=== PATIENT | female | born 1990 | race African-American/Black ===

== ENCOUNTER 2021-09-29 12:15 | Outpatient (CLI) | payer BC, SELFPAY ==
--- NOTE | ~2021-09-29 | US_ITS ---
EXAMINATION: US FNA w image guidance DATE: 09/29/2021 14:13 INDICATION: Left thyroid mass TECHNIQUE: A time-out was performed to verify the patient's name, date of , and procedure to be performed . The procedure and its benefits and risks were discussed with the patient. Risks specifically discus sed included bleeding and infection. The patient understood the risks and agreed to proceed. The neck was prepped and draped in the usual sterile manner. 4 mL 1% lidocaine was used for local anesthesia . 6 passes were made with a 25G needle into the lesion. Appropriate needle location was documented w ith continuous sonographic guidance. Subsequently a 21G needle was advanced into the cystic component of the mass and fluid was aspirated. A sterile bandage was applied. There were no immediate complic ations. FINDINGS: Grayscale ultrasound images demonstrate biopsy needles advanced into the solid components of a 8.2 x 6.2 x 5.1 cm mixed solid and cystic. Left thyroid mass. Subsequent images demonstrate a needle advanc ed into the cystic component of the left thyroid mass with progressive decompression of the mass. A t otal of 75 mL of brownish fluid was aspirated from the cystic component of the mass and also sent to the lab for cytology. IMPRESSION: 1. Successful ultrasound-guided fine needle aspiration of an 8.2 cm mixed solid and cystic left thyr oid mass. 2. Successful ultrasound-guided aspiration of fluid from the cystic component of the mass using 75 mL of brownish fluid. Reviewed, dictated and finalized at location A. IMPRESSION: 1. Successful ultrasound-guided fine needle aspiration of an 8.2 cm mixed verónica d and cystic left thyroid mass. 2. Successful ultrasound-guided aspiration of fluid from the cystic component o f the mass using 75 mL of brownish fluid.
== END 2021-09-29 12:16 | disposition home or self-care (01) ==
PROVIDERS: PCP Internal Medicine Infectious Disease; Visit Provider Nurse Practitioner
DX: E04.9 Nontoxic goiter, unspecified (principal)
CPT/HCPCS: 10005; 88104; 88108; 88173; 88305

== ENCOUNTER 2025-03-13 13:49 | Observation (INO) | payer OTHER, SELFPAY ==
[2025-03-13] VITALS (10 sets, daily range): BP systolic 137–153; BP diastolic 69–105; PULSE 104–130; RESP 20–33; TEMP 36.6–37.3; O2SAT 97–100; BMI 41.1
--- NOTE | ~2025-03-13 | XR_ITS ---
EXAMINATION: XR chest 2V, 03/13/2025 15:09 FINGERPRINT CLERK HISTORY: cough COMPARISON: No comparisons available. Technique: 2 views obtained. Findings: Small basilar infiltrates. No pneumothorax. Heart is normal size. Mediastinal and hilar contours are within normal limits. Bony thorax no acute abnormality. Impression: Early bilateral pneumonia Reviewed, dictated and finalized at location P. ERPRINT CLERK Impression: Early bilateral pneumonia
--- NOTE | 2025-03-13 14:24 | ECG_ITS ---
Test Date: 2025-03-13 14:26:14 Measurements Intervals [place] Rate: 116 P: 34 MI: 128 QRS: 54 QRSD: 83 T: 30 QT: 301 QTc: 419 Interpretive Statements SINUS TACHYCARDIA ABNORMAL ECG No previous ECG available for comparison Electronically Signed On 03-13-2025 14:41:58 THREAD DRAWER by rIon Lopez D.O.
[2025-03-13 15:19] LABS: Influenza A QL RT-PCR Positive (Negative); Influenza B QL RT-PCR Negative (Negative); RSV RNA, RT-PCR Negative (Negative); SARS-CoV-2 RNA PCR Negative (Negative)
[2025-03-13] MEDS: KETOROLAC 30 MG/ML VIAL (*BKC) IV PUSH (15:27)
[2025-03-13] MEDS: SODIUM CHLORIDE 0.9% IV 1,000 ML 999 ML IV CONT ×3 (15:27→17:22)
[2025-03-13 15:40] LABS: Hematocrit 36.5 % (37.0-47.0); Hemoglobin 12.5 g/dL (12.0-15.0); Mean Corpuscular HGB Conc 34.2 g/dl (32-36); Mean Corpuscular Hemoglobin 23.5 pg (26-34); Mean Corpuscular Volume 68.7 fl (80-100); Platelet Count Result 230 k/mm3 (150-375); Red Blood Count 5.31 M/mm3 (4.2-5.4); White Blood Count 5.0 K/mm3 (4.5-10.0)
--- NOTE | 2025-03-13 15:41 | ED_ITS ---
HPI - General Adult General Chief complaint: Upper Respiratory Infection Stated complaint: cough, sob Time Seen by Provider: 03/13/25 14:25 History of Present Illness HPI narrative: Patient is a 34-year-old female who presents ER with cough and shortness of breath. Ongoing over last 24 hours. Associated sinus congestion with sore throat. She has cough that causes pain in her chest. She has exertional dyspnea. Her cough is productive. No known sick contacts. She has been having cycling of fevers and chills. Denies body aches. Related Data Home Medications ?Medication ?Instructions ?Recorded ?Confirmed ?Last Taken ?Type No Home Medications 09/17/21 09/17/21 U nknown History Allergies Allergy/AdvReac Type Severity Reaction Status Date / Time No Known Allergies Allergy Verified 03/13/25 13:50 Review of Systems 2 Review of Systems: All systems reviewed & are unremarkable except as noted in HPI and below Constitutional: Constitutional: Reports no additional constitutional complaints Cardiovascular: Cardiovascular: Reports no additional cardiovascular complaints Respiratory: Respiratory: Reports no additional respiratory complaints Gastrointestinal: Gastrointestinal: Reports no additional gastrointestinal complaints Musculoskeletal: Musculoskeletal: Reports no additional musculoskeletal complaints FOR[facility]LY [facility], [facility] Past Medical History Medical History (Updated 03/13/25 @ 18:53 by Popeye Redmond MD) Graves disease Social History Social History Smoking status: Never smoker Alcohol intake: never Substance use: never Exam 2 Narrative: GENERAL: Unwell-appearing, well-nourished, and in no acute distress. HEAD: Normocephalic, atraumatic. ENT: Mucous membranes moist. NECK: Supple. CHEST: Clear to auscultation. Frequent coughing. HEART: Tachycardic and regular. Normal peripheral pulses. ABDOMEN: Soft, nontender, nondistended. EXTREMITIES: Normal range of motion. No edema. SKIN: Warm, dry, no rash. NEURO: Alert and oriented x3. Course Course Emergency Course: Admit to hospitalist service for influenza pneumonia. No hypoxia but patient with rapidly progressive course which is concerning. Vital Signs Vital signs: Vital Signs Temperature 98.7 F 03/13/25 13:52 Pulse Rate 130 H 03/13/25 13:52 Respiratory Rate 20 03/13/25 13:52 Blood Pressure 153/105 H 03/13/25 13:52 Pulse Oximetry 100 03/13/25 13:52 Oxygen Delivery Room Air 03/13/25 13:52 Temperature 98.7 F 03/13/25 13:52 Pulse Rate 106 H 03/13/25 17:36 Respiratory Rate 22 H 03/13/25 17:36 Blood Pressure 153/78 H 03/13/25 17:36 Pulse Oximetry 98 03/13/25 17:36 Oxygen Delivery Room Air 03/13/25 14:22 MDM Differential Diagnosis Differential Diagnosis: Pneumonia, influenza, URI, musculoskeletal chest pain, pneumothorax Lab Data MDM Lab Attestation statement: I personally reviewed the patient's lab results. 03/13/25 15:29 03/13/25 15:29 Labs: Lab Results 03/13/25 03/13/25 Range/Units 14:26 15:29 WBC 5.0 (4.5-10.0) K/mm3 RBC 5.31 (4.2-5.4) M/mm3 Hgb 12.5 (12.0-15.0) g/dL Hct 36.5 L (37.0-47.0) % MCV 68.7 L (80-100) fl MCH 23.5 L (26-34) pg MCHC 34.2 (32-36) g/dl RDW 14.5 (11.5-14.5) % Plt Count 230 (150-375) k/mm3 MPV 9.3 (7.4-10.4) fl Immature Gran % (Auto) Not Reportable Neut % (Auto) Not Reportable Lymph % (Auto) Not Reportable [place] % (Auto) Not Reportable Eos % (Auto) Not Reportable Baso % (Auto) Not Reportable Lymph # (Auto) Not Reportable [place] # (Auto) Not Reportable Eos # (Auto) Not Reportable Baso # (Auto) Not Reportable Abs Immat Gran (auto) Not Reportable Absolute Neuts (auto) Not Reportable Absolute Nucleated RBC Not Reportable Total Counted 100 Neutrophils % (Manual) 49 (46-73) % Band Neutrophils % Not Reportable Lymphocytes % (Manual) 34 (18-44) % Monocytes % (Manual) 17 H (3-9) % Nucleated RBC % Not Reportable Abs Neuts (Manual) 4.15 (1.3-6.7) K/mm3 Abs Lymphs (Manual) 1.70 (1.1-4.5) K/mm3 Abs Monocytes (Manual) 0.85 (0.1-0.90) K/mm3 Platelet Estimate Adequate (Adequate) Microcytosis 1+ (NORMAL) Schistocytes None seen Sodium 136 L (137-145) mmol/L Potassium 4.0 (3.4-5.0) mmol/L Chloride 104 (98-107) mmol/L Carbon Dioxide 27 (22-30) mmol/L Anion Gap 5 (4-12) mmol/L BUN 6 L (7-17) mg/dL Creatinine 0.40 L (0.7-1.0) mg/dL Estim Creat Clear Calc Not Reportable Estimated GFR > 60 (59 - ) Glucose 108 (65-110) mg/dL Calcium 9.1 (8.4-10.2) mg/dL Total Bilirubin 0.6 (0.2-1.3) mg/dL AST 36 (14-36) U/L ALT 29 (6-35) U/L Alkaline Phosphatase 132 H (38-126) U/L Total Protein 8.0 (6.3-8.2) g/dL Albumin 4.1 (3.5-5.1) g/dL Influenza A (RT-PCR) Positive A (Negative) Influenza B (RT-PCR) Negative (Negative) RSV (RT-PCR) Negative (Negative) SARS-CoV-2 RNA (RT-PCR) Negative (Negative) Imaging Data Radiologist's impression: ITS Impressions Chest X-Ray 03/13/25 15:16 Impression: Early bilateral pneumonia Discharge Plan Discharge Clinical Impression: Influenza and pneumonia Patient Disposition: Still a Patient Condition: Stable
[2025-03-13 15:55] LABS: Alanine Aminotransferase 29 U/L (6-35); Albumin Level 4.1 g/dL (3.5-5.1); Alkaline Phosphatase 132 U/L (38-126); Anion Gap 5 mmol/L (4-12); Aspartate Amino Transferase 36 U/L (14-36); Bilirubin,Total 0.6 mg/dL (0.2-1.3); Blood Urea Nitrogen 6 mg/dL (7-17); Calcium 9.1 mg/dL (8.4-10.2); Carbon Dioxide 27 mmol/L (22-30); Chloride 104 mmol/L (98-107); Estimated Glomerular Filt Rate > 60; Glucose 108 mg/dL (65-110); Potassium 4.0 mmol/L (3.4-5.0); Sodium 136 mmol/L (137-145); Total Protein 8.0 g/dL (6.3-8.2)
[2025-03-13 16:11] LABS: Neutrophils Absolute Manual 4.15 K/mm3 (1.3-6.7); Neutrophils Percent Manual 49 % (46-73); Total Cells Counted 100
[2025-03-13 16:12] LABS: Lymphocytes Absolute Manual 1.70 K/mm3 (1.1-4.5); Lymphocytes Percent Manual 34 % (18-44); Microcytosis 1+ (NORMAL); Monocytes Absolute Manual 0.85 K/mm3 (0.1-0.90); Monocytes Percent Manual 17 % (3-9); Schistocytes None Seen
[2025-03-13] MEDS: OSELTAMIVIR PHOSPHATE 75 MG CAPSULE PO (17:15)
--- NOTE | 2025-03-13 19:04 | PC.NURSE ---
antibiotics have not been started at this time due to second set of blood cultures not being obtained. phlebotomy has been called.
--- OUTSIDE RECORDS SUMMARY | 2025-03-13 20:04 | XMS_ITS | Data Portability ---
Author Organization [place] [facility] [employer], Main Office Address [address] [place] [address] Care Team Providers Care Window Sash Installer Name Role Phone GRABIEL CHAUDHARI Primary Care Provider GRABIEL CHAUDHARI Referring Provider [phone] Assessment Encounter Date Assessment Date Assessment LastModified by Organization Details LastModified Time 04/23/2024 04/23/2024 33-year-old female presents for evaluation of her left thumb. She works at [employer] and had injury on 04/18/2024 at work when she closed her thumb and if safe drawer. She presented the emergency department where she is found to have a laceration and a minimally displaced fracture of the distal phalanx. She was dressed and splinted and sent here for follow-up. She denies having any previous injuries. She is right-hand dominant. Review of systems per patient questionnaire Physical exam: Previous splint and dressing were removed. She has a laceration that is healing over the distal phalanx dorsal aspect. It is proximal to the level of the nail. She has sensation intact to light touch. 2+ radial pulse. X-rays were reviewed, demonstrating a transverse fracture of the distal phalanx We redressed her wound with a nonstick dressing and placed her into a Alumafoam finger splint. We will treat this conservatively. She was given a few days of Keflex for her wound at the emergency department and we will extend that. follow-up in 2 weeks for recheck, or sooner as needed. Avoid use of that hand. [email or web address] Not available 04/23/2024 12:03:20 05/07/2024 05/07/2024 33-year-old female presents for follow up of her left thumb. She had a tuft fracture when she got her finger caught in a safe door. She has been in the splint. We gave her a course of Keflex last time which she is completing. She has been keeping it clean and dry. Her laceration is well healed. She still has some soreness over the distal phalanx. She has sensation intact to light touch, brisk cap refill We will maintain her in the splint. We discussed that bones typically take about 6 weeks to heal. We will keep her restricted to no lifting pushing pulling with the left hand. follow up in 3 weeks with repeat x-rays. [email or web address] Not available 05/07/2024 11:48:12 Plan of Treatment Reminders Order Date Submit Date Provider Last Modified By Organization Details Last Modified Time Details Appointments None recorded. Lab None recorded. Referral None recorded. Procedures None recorded. Surgeries None recorded. Imaging None recorded. Medication Orders cephalexin 500 mg tablet 2024 025 [email or web address] [facility], [address] [place] [address], [address], 21:47:34 Patient TargetsNo targets recorded. Patient InstructionsNo instructions recorded. Reason for Referral None Reported. Results Created Date Observation Date Name Description Value Unit Range Abnormal Flag Note LastModifiedBy Organization Detail LastModifiedTime 08/21/1908/20/2022 COMPR EHENS GEOFFREY METAB OLIC PANEL sodium 139 mmol/ L 137-14 5 Not Available [facility] (Lab) [address] [place], [address], 08/20/2022 14:57:51 08/21/19 23 08/20/2022 COMPR EHENS GEOFFREY METAB OLIC PANEL potassium 3.5 mmol/ L 3.5-5. 1 Not Available [facility] (Lab) [address] [place], [address], 08/20/2022 14:57:51 08/21/19 23 08/20/2022 COMPR EHENS GEOFFREY METAB OLIC PANEL chloride 108 mmol/ L 98-107 high Not Available [facility] (Lab) [address] [place], [address], 08/20/2022 14:57:51 08/21/19 23 08/20/2022 COMPR EHENS GEOFFREY METAB OLIC PANEL carbon dioxide 24 mmol/ L 22-30 Not Available [facility] (Lab) [address] [place], [address], 08/20/2022 14:57:51 08/21/19 23 08/20/2022 COMPR EHENS GEOFFREY METAB OLIC PANEL anion gap 10.5 mmol/ L 14-22 low Not Available [facility] (Lab) [address] [place], [address], 08/20/2022 14:57:51 08/21/19 23 08/20/2022 COMPR EHENS GEOFFREY METAB OLIC PANEL glucose 112 mg/dL 70-99 high Not Available [facility] (Lab) [address] [place], [address], 08/20/2022 14:57:51 08/21/19 23 08/20/2022 COMPR EHENS GEOFFREY METAB OLIC PANEL BUN 6 mg/dL 8-19 low Not Available [facility] (Lab) [address] [place], [address], 08/20/2022 14:57:51 08/21/19 23 08/20/2022 COMPR EHENS GEOFFREY METAB OLIC PANEL creatinine 0.39 mg/dL 0.66-1 .25 low Not Available [facility] (Lab) [address] [place], [address], 08/20/2022 14:57:51 08/21/19 23 08/20/2022 COMPR EHENS GEOFFREY METAB OLIC PANEL GFR >60 Refer ence Range : Grant ge GFR Healt hy Adult : >60 mL/mi n/1.7 3 m2 Chron ic Kidne y Disea se: 15-60 mL/mi n/1.7 3 m2 Kidne y Failu re: <15/m L/min /1.73 m2 www.n iddk. nih.g ov The MDRD study equat ion has not been valid ated in child clarice <18 years of age; pregn ant women ; the elder ly >85 years of age; or in some racia l or ethni c subgr oups, such as Hispa nics. Outsi de the valid ated jermaine eters , estim ated GFR is less accur ate, requi ring clini martine judgm ent on a case- by-ca se basis . Clini martine inter preta tion for other races and ages must be made by the clini jenna. The MDRD study equat ion has not been valid ated for the evalu ation of serum creat inine relat ed to nutri pito l statu s or medic ation usage . For perso ns <18 years of age, a pedia tric GFR calcu lator is avail able on the [facility] websi te: https ://yenifer w.neha raines.o rg/pr ofess ional s/kdo qi/gf r_cal culat or Not Available [facility] (Lab) [address] [place], [address], 08/20/2022 14:57:51 08/21/19 23 08/20/2022 COMPR EHENS GEOFFREY METAB OLIC PANEL alkaline phosphatase 83 U/L 38-126 Not Available [facility] (Lab) [address] [place], [address], 08/20/2022 14:57:51 08/21/19 23 08/20/2022 COMPR EHENS GEOFFREY METAB OLIC PANEL alanine aminotransfe rase 19 U/L 0-35 Not Available [facility] (Lab) [address] [place], [address], 08/20/2022 14:57:51 08/21/19 23 08/20/2022 COMPR EHENS GEOFFREY METAB OLIC PANEL aspartate aminotransfe rase 23 U/L 15-37 Not Available [facility] (Lab) [address] [place], [address], 08/20/2022 14:57:51 08/21/19 23 08/20/2022 COMPR EHENS GEOFFREY METAB OLIC PANEL bilirubin, total 0.40 mg/dL 0.20-1 .30 Not Available [facility] (Lab) [address] [place], [address], 08/20/2022 14:57:51 08/21/19 23 08/20/2022 COMPR EHENS GEOFFREY METAB OLIC PANEL calcium 8.8 mg/dL 8.4-10 .2 Not Available [facility] (Lab) [address] [place], [address], 08/20/2022 14:57:51 08/21/19 23 08/20/2022 COMPR EHENS GEOFFREY METAB OLIC PANEL total protein 6.8 g/dL 6.3-8. 2 Not Available [facility] (Lab) [address] [place], [address], 08/20/2022 14:57:51 08/21/19 23 08/20/2022 COMPR EHENS GEOFFREY METAB OLIC PANEL albumin 3.5 g/dL 3.4-5. 0 Not Available [facility] (Lab) [address] [place], [address], 08/20/2022 14:57:51 08/21/19 23 08/20/2022 COMPR EHENS GEOFFREY METAB OLIC PANEL globulin 3.3 g/dL 2.6-4. 2 Not Available [facility] (Lab) [address] [place], [address], 08/20/2022 14:57:51 08/21/19 23 08/20/2022 COMPR EHENS GEOFFREY METAB OLIC PANEL A/G ratio 1.1 ratio 1.0-2. 0 Not Available [facility] (Lab) [address] [place], [address], 08/20/2022 14:57:51 08/21/19 23 08/20/2022 T3 FREE free T3 8.7 pg/mL 2.77-5 .27 high Not Available [facility] (Lab) [address] [place], [address], 08/20/2022 15:14:03 08/21/19 23 08/20/2022 T4 FREE free T4 2.84 NG/dL 0.78-2 .19 high Not Available [facility] (Lab) [address] [place], [address], 08/20/2022 15:14:10 08/21/19 23 08/20/2022 TSH thyroid-stim ulating hormone <0.015 uIU/m L 0.465- 4.680 low Not Available [facility] (Lab) [address] [place], [address], 08/20/2022 15:27:42 08/21/19 23 08/21/2022 THYRO ID PEROX IDASE (TPO) AB thyroid peroxidase (tpo) Ab <9 IU/mL 0-34 Perfo rmed at: [facility] [address] [place] [address] Lab Direc tor: Royal vincent PhD, Phone : [phone] Not Available [facility] (Lab) [address] [place], [address], 08/21/2022 10:10:10 08/21/19 23 08/24/2022 THYRO ID STIM IMMUN OGLOB ULIN thyroid stim immunoglobul in 3.96 IU/L 0.00-0 .55 high Perfo rmed at: [facility] [address] [place] [address] [place] [address] Lab Direc tor: Meryl conner MD, Phone : [phone] Not Available [facility] (Lab) [address] [place], [address], 08/24/2022 15:10:45 09/30/19 22 09/29/2021 fine needl e aspir ation , ultra sound guide d, thyro id (PROC ) No observ ation record ed. [id number] [facility] [address] [place], [address], 06/02/2022 23:57:43 04/18/19 25 04/18/2024 XR, finge r(s), 2 or more view No observ ation record ed. [email or web address] Not Available 04/04 15:15:12 Result Notes None recorded. 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 2021 Not Available [facility] 3 23:56:38 Graves' disease 732823875 Active 2021 Not Available [facility] 3 23:56:38 Pain of left hand 6923274510593 03 Active 2024 VELMA Martínez, [facility] 5 10:44:50 Essential hypertensi on 79130219 Active 2024 Angie Portillo ATC L null, [facility] 5 11:07:09 Gout 98211209 Active 2024 Angie Portillo ATC L null, [facility] 5 11:07:09 Folliculit is 51695868 Active 2024 Angie Portillo ATC L null, [facility] 5 11:07:09 Problem Notes None recorded. Medical Equipment None Reported. Allergies No known drug allergies Medications Name Sig Start Date Stop Date Status Note LastModified by Organization Details LastModified Time azelastine 0.05 % eye drops 04/19 completed Not Available Not Available Not Available prednisone 20 mg tablet TAKE 1 TABLET BY MOUTH ONCE DAILY FOR 5 DAYS 04/19 completed Not Available Not Available Not Available amoxicillin 500 mg tablet TK 1 T PO TID UNTIL GONE 09/22 completed Not Available Not Available Not Available propranolol 10 mg tablet TAKE 1 TABLET BY MOUTH EVERY 8 HOURS 04/19 completed Not Available Not Available Not Available famotidine 20 mg tablet 09/22 completed Not Available Not Available Not Available cephalexin 500 mg capsule TAKE 1 CAPSULE BY MOUTH EVERY 6 HOURS active Not Available Not Available No t Available erythromyci n 5 mg/gram (0.5 %) eye ointment 04/19 completed Not Available Not Available Not Available methimazole 5 mg tablet Take 1 tablet twice a day by oral route before meals for 90 days. 06/20 completed Not Available Not Available Not Available Banophen 25 mg capsule 04/19 completed Not Available Not Available Not Available cephalexin 500 mg tablet Take 1 tablet every 6 hours by oral route. 2024 active Not Available Not Available Not Avai lable methylpredn isolone 4 mg tablets in a dose pack TAKE BY MOUTH DIRECTED ON INSIDE OF PACKAGE 09/22 completed Not Available Not Available Not Available methimazole 10 mg tablet take one tablet in morning and one tablet before dinner x 90 days 04/19 completed Not Available Not Available Not Available loratadine 10 mg tablet TAKE 1 TABLET BY MOUTH ONCE DAILY DIRECTED FOR 30 DAYS 09/22 completed Not Available Not Available Not Available chlorhexidi ne gluconate 0.12 % mouthwash TAKE15 CC SWISH AND SPIT 2 TIMES DAILY FOR 2 WEEKS 09/22 completed Not Available Not Available Not Available iodine 150 mcg tablet Take 1 tablet every day by oral route for 30 days. 04/19 completed Not Available Not Available Not Available Vitals Date Recorded Body height Body mass index (BMI) Body weight Pain severity - 0-10 verbal numeric rating [Score] - Reported Provider Name and Address Organization Details Last Updated DateTime 04/23/2024 149.86 cm 44.4 kg/m2 01947.32 g 0 VELMA Martínez [place] [facility] [employer] [facility] 04/23/2024 10:43:46 Date Recorded Body height Body mass index (BMI) Body weight Pain severity - 0-10 verbal numeric rating [Score] - Reported Provider Name and Address Organization Details Last Updated DateTime 05/07/2024 149.86 cm 44.4 kg/m2 50607.32 g 1 VELMA Martínez [place] [facility] 05/07/2024 11:12:55 Date Recorded Body mass index (BMI) Body height Oxygen saturation Heart rate Body temperature Body weight Systolic And Diastolic Provider Name and Address Organization Details Last Updated DateTime 2 37 kg/m2 149.86 cm 99 % 92 /min 98 [degF] 48201.4 g 122/68 mm[Hg] Not Available [facility] 3 23:56:11 Date Recorded Body mass index (BMI) Body height Oxygen saturation Heart rate Body temperature Body weight Systolic And Diastolic Provider Name and Address Organization Details Last Updated DateTime 2 39.4 kg/m2 149.86 cm 97 % 91 /min 98 [degF] 88000.5 1 g 124/70 mm[Hg] Not Available [facility] 3 23:56:11 Date Recorded Body mass index (BMI) Body height Heart rate Body temperature Body weight Systolic And Diastolic Provider Name and Address Organization Details Last Updated DateTime 2 44.8 kg/m2 149.86 cm 91 /min 97.1 [degF] 501622. 79 g 102/70 mm[Hg] Not Available [facility] 3 23:56:11 Social History Question Answer Notes LastModified by Cub[employer] Details LastModified Time Tobacco Smoking Status Never Smoker Not Available [facility] 06/02/2022 23:55:46 What Was The Date Of Your Most Recent Tobacco Screening? 04/23/2024 [email or web address] Information not available 04/23/2024 Sex: Unknown Functional Status Question Answer Note LastModified by [employer] Details LastModified Time What is your level of alcohol consumption? Occasional [id number] Information not available 06/02/2022 Mental Status None recorded. Family History Relationship Description Onset Age of this Age Resolved Age Notes LastModified by Organization Details LastModified Time Maternal Aunt Disorder of thyroid gland [id number] Not available 06/02/2022 23:56:07 Maternal Uncle History of thyroid disorder [id number] Not available 06/02/2022 23:56:07 Medical History Condition Response BLINDNESS N RHEUMATIC FEVER N MRSA N INFECTIOUS DISEASE N HEART ARRHYTHMIA N LUNG DISEASE/DISORDER N HISTORY OF DRUG ABUSE N INSOMNIA N RADIATION / CHEMOTHERAPY N COPD N HIGH CHOLESTEROL / HYPERLIPIDEMIA N EYE PROBLEMS N HYPERTHYROIDISM N BLOOD DISEASES N SURGERY N EDEMA N HYPOTHYROIDISM N SHINGLES N DEPRESSION (INCLUDING POST ) N HAVE YOU BEEN HOSPITALIZED OR SEEN IN [facility] ER IN THE PAST YEAR ? N STROKE/TIA N THYROID DISEASE N BENIGN PROSTATIC HYPERPLASIA N OBESITY N EXCESSIVE PERSPIRATION N GERD/NAUSEA N ANEURYSM N OSTEOPOROSIS N ARTHRITIS N USE OF BLOOD THINNERS N NO SIGNIFICANT PAST MEDICAL HISTORY N SKIN PROBLEMS N DIABETES, TYPE N PARATHYROID DISEASE N BLOOD CLOTS N HEPATITIS / LIVER DISEASE N GOUT N ALZHEIMER'S DISEASE N HERPES N RETINOPATHY N SEIZURES/EPILEPSY N HEADACHES/MIGRAINES N GI PROBLEMS N Low Testosterone N DIZZINESS N KIDNEY DISEASE N HEART DISEASE/HEART PROBLEMS N AIDS/HIV N LIVER DISEASE N HYPERTENSION N CANCER: SPECIFY N TOURETTE'S N BLOOD TRANSFUSION N ANEMIA/BLOOD DISORDER N ATRIAL FIBRILLATION N AUTOIMMUNE DISEASE N TUBERCULOSIS N GLAUCOMA N Gynecological HistoryNo gynecological history recorded. Obstetrics History GPAL:G 0 P 0 0 0 0 Past Encounters Encounter ID Performer Location Encounter Start Date Encounter Closed Date Diagnosis/Indication Diagnosis SNOMED-CT Code Diagnosis ICD10 Code Diagnosis IMO Codes Diagnosis Note [id number] [facility] [address] [place] [id number] 09/22/2021 00:00:00 09/22/2021 16:25:53 [id number] [facility] [address] [place] [id number] 1 2021 00:00:00 2021 15:41:20 [id number] [facility] [address] [place] [id number] 1 03/09/2022 00:00:00 03/09/2022 17:19:33 [id number] Sae Hanks MD [facility] [address] [facility] [address] [place] [address] 04/23/2024 10:27:14 04/23/2024 11:09:09 Pain of left hand 1841022681 36627 M79.297 [id number] Sae Hanks MD [facility] [address] [facility], [address] [place] [address] 05/07/2024 11:07:13 05/07/2024 11:26:40 Pain of left hand 8484896193 86997 M79.642 Health Concerns Section Related Observation LastModified by Organization Detai ls LastModified Time None Recorded Concern Status LastModified by Organization Details LastModified Time None Recorded Advance Directives Directive None Recorded Payers Insurance Date Sequence Insurance Name Policy Number Policy Farrar Covered Member ID Farrar Member ID Guarantor Name 07/18/2024 1 [facility] - DOS ON OR AFTER 20 (MEDICAID REPLACEMENT - HMO) Gael Bird [id number] Gael Bird 05/03/2024 2 [facility] - DOS PRIOR TO 2024 (MEDICAID REPLACEMENT - HMO) [id number] Gael Bird [id number] Gael Bird OBGyn Episode No OBEpisode recorded.
--- OUTSIDE RECORDS SUMMARY | 2025-03-13 20:04 | XMS_ITS | Encounter Summary ---
Author Organization [facility] Address [address] [facility] [address] [place] [address] Phone Care Team Providers Care Senior Risk Analyst Name Role Phone Unknown, Notinfile Primary Care Provider Unavail able Encounter Details Date Type Department Care Team (Late st Contact Info) Description 09/05/2021 Ophth Exam [facility] Medicine Ophthalmology [address] [place] [address] [address] [place] [address] David Hernandez MD [address] [facility] [phone] [place] [address] Social History Tobacco Use Types Packs/Day Years Used Date Smoking Tobacco: Never Assessed PHQ-2 Answer Date Recorded PHQ-2 Total Score (If total score is 3 or more points, staff should administer the PHQ-9) 0 09/06/2021 Comments Unknown Sex and Gender Information Value Date Recorded Sex Assigned at Not on file Legal Sex Female 10:13 AM CDT Gender Identity Not on file Sexual Orientation Not on file documented as of this encounter Functional Status * Question Answer Date of Assessment Author BP Location Right arm 09/06/2021 1:05 PM CDT Addie Lucas RN BP Method Automatic 09/06/2021 1:05 PM CDT Addie Lucas RN MAP (mmHg) 78 09/06/2021 1:05 PM CDT Addie Lucas RN * Roman Fall Risk Question Answer Date of Assessment Author History of Falling 0 09/06/2021 7: 00 AM Addie Banks RN Secondary Diagnosis 0 09/06/2021 7 :00 AM Addie Banks RN Ambulatory Aids 0 09/06/2021 7:00 AM Addie Banks RN Intravenous Therapy/Heparin/Saline Lock 20 09/06/2021 7:00 AM Addie Banks RN Gait/Transferring 10 09/06/2021 7:0 0 AM MANDIET Addie Freire RN Mental Status 0 09/06/2021 7:00 AM MANDIET Addie Freire RN Auto Low/High - if selected proceed to interventions (retired) N/A-fall assessment required 09/06/2021 7:00 AM Addie Banks RN Roman Fall Risk Score (Score >= 45 places fall precaution order) 30 09/06/2021 7:00 AM Addie Banks RN * Rojas Scale Question Answer Date of Assessment Author Sensory Perceptions 4 09/06/2021 9:26 AM CD Addie Beltre RN Moisture 4 09/06/2021 9:26 AM Addie Riley RN Activity 4 09/06/2021 9:26 AM Addie Riley RN Mobility 4 09/06/2021 9:26 AM Addie Riley RN Nutrition 3 09/06/2021 9:26 AM Addie Riley RN Friction and Shear 3 09/06/2021 9:26 AM Addie Banks RN Rojas Scale Score 22 09/06/2021 9:26 AM Addie Banks RN * Fall Risk Interventions Question Answer Date of Assessment Author All Low Fall Interventions Applied Yes 09/06/2021 7:00 AM Addie Banks RN All Moderate Fall Interventi ons Applied Yes 09/06/2021 7:00 AM Addie Banks RN * B.M.A.T. - Bedside Mobility Assessment Tool for Nurses Question Answer Date of Assessment Author Is patient able to participate in the BMAT? Yes 09/06/2021 3:00 AM CDT Agnes Delacruz RN BMAT Level Level 4 - Green 09/06/2021 3:00 AM CDT Myrtle Cano RN * Question Answer Date of Assessment Author 1. Has the patient self-repo rted, presented with clinical signs of, or have a documented history of any of the following within the past 30 days? No 09/06/2021 3:00 AM CDT Myrtle Delacruz RN * Question Answer Date of Assessment Author Is the patient being treated today because it is known or suspected that they prepared, started, or tried to end their life? No 09/05/2021 10:16 AM CDT Madhuri Burger RN * Suicide Risk Level Answer Date of Assessment Author No risk level 09/05/2021 10:16 AM CDT Madhuri Burger RN * Self-Injurious Risk Level Answer Date of Assessment Author No risk level 09/06/2021 3:00 AM CDT Kim Delacruz RN * Pressure Injury Prevention Question Answer Date of Assessment Author 2 Nurse Skin Assessment mai kuhn 09/06/2021 3:00 A M MANDIET Myrtle Delacruz RN * Integumentary Question Answer Date of Assessment Author Integumentary (WDL) WDL 09/06/2021 9:26 AM CD T Addie Freire RN * Question Answer Date of Assessment Author BP Location Right arm 09/06/2021 1:05 PM Addie Riley RN BP Method Automatic 09/06/2021 1:05 PM MANDIET Addie Lucas RN * Question Answer Date of Assessment Author Bed In Lowest Position Yes 09/06/2021 7:00 AM Addie Banks RN Bed Wheels Locked Yes 09/06/2021 7:00 AM MANDIET Addie Freire RN * Fall Risk Interventions Question Answer Date of Assessment Author All Low Fall Interventions Applied Yes 09/06/2021 7:00 AM Addie Banks RN All Moderate Fall Interventi ons Applied Yes 09/06/2021 7:00 AM Addie Banks RN * Question Answer Date of Assessment Author Bath Bathed/showered with chlorhexidine (CHG) 09/06/2021 4:00 AM MANDIET Myrtle Delacruz RN * ADL Screening Question Answer Date of Assessment Author Patient's Vision Adequate to Safely Complete Daily Activities Yes 09/06/2021 3:00 AM Myrtle Wilkes, FRANCISCO Patient's Judgement Adequate to Safely Complete Daily Activities Yes 09/06/2021 3:00 AM MANDIET Myrtle Delacruz RN Patient's Memory Adequate to Safely Complete Daily Activities Yes 09/06/2021 3:00 AM Myrtle Wilkes RN Patient Able to Express Needs/Desires Yes 09/06/2021 3:00 AM MANDIET Myrtle Delacruz RN Dressing Independent 09/06/2021 3:00 AM Myrtle Ma RN Grooming Independent 09/06/2021 3:00 AM Myrtle Ma RN Feeding Independent 09/06/2021 3:00 AM Myrtle Ma RN Bathing Independent 09/06/2021 3:00 AM Myrtle Ma RN Toileting Independent 09/06/2021 3:00 AM Myrtle Ma RN In/Out Bed Independent 09/06/2021 3:00 AM Myrtle Ma RN Walks in Home Independent 09/06/2021 3:00 AM Myrtle Phillips RN Weakness of Legs None 09/06/2021 3:00 AM CDT Myrtle Chu RN Weakness of Arms/Hands None 09/06/2021 3:00 AM Myrtle Wilkes RN Hearing - Right Ear Functional 09/06/2021 3:00 AM CD Myrtle Fountain RN Hearing - Left Ear Functional 09/06/2021 3:00 AM Myrtle Wilkes RN Dominant hand? Right 09/06/2021 3:00 AM MANDIET Myrtle Leavitt RN Decline in ADLs in last 2 weeks? Yes (Comment) 09/06/2021 3:00 AM CDT Myrtle Delacruz, FRANCISCO * Therapy Consults Question Answer Date of Assessment Author PT Evaluation Needed 2 09/06/2021 3:00 AM Myrtle Mendez, FRANCISCO OT Evaluation Needed 2 09/06/2021 3:00 AM Myrtle Menedz RN IN FLIGHT REFUELING OPERATOR Evaluation Needed 2 09/06/2021 3:00 AM CDT Myrtle Delacruz RN * Assistive Devices Question Answer Date of Assessment Author Assistive Devices/DME None 09/06/2021 3:00 AM CDT Myrtle Delacruz RN documented as of this encounter Mental Status * Neuro ([facility]) Answer Entry Date Author [facility] 09/05/2021 11:16 AM CDT Laly Alvarado RN * Question Answer Entry Date Author Neuro ([facility]) [facility] 09/06/2021 9:26 AM CDT Addie Lucas RN documented in this encounter Plan of Treatment Not on file documented as of this encounter Visit Diagnoses Not on filedocumented in this encounter Eye Exam Visual Acuity Right eye Left eye Near sc 20/25 PH 20/20 20/25 PH 20/20 Tonometry (Tonopen, 6:15 PM) Right eye Left eye Pressure 21 21 Pupils Dark Light Shape React APD Right eye 4 2 Round Brisk None Left eye 4 2 Round Brisk None Visual Schuler Right eye Left eye Full Full Extraocular Movement Right eye Left eye Full, Ortho Full, Ortho Neuro/Psych Oriented x3: Yes Mood/Affect: Normal Dilation Both eyes: 2.5% Phenylephrin e, 1.0% Mydriacyl @ 6:16 PM External Exam Right eye Left eye External epiphora epiphora Slit Lamp Exam Right eye Left eye Lids/Lashes protective ptosis protective pto sis Conjunctiva/Sclera tr injection, tr chemosis tr injection, tr chemosis Cornea intrapalpebral SPEE intrapalpebr al SPEE Anterior Chamber Deep and Quiet Deep and Quiet Iris Round and reactive Round and dolores ctive Lens Clear Clear Vitreous Normal Normal Fundus Exam Right eye Left eye Disc Sharp margins, no elevation Tomas p margins, no elevation C/D Ratio 0.3 0.3 Macula Flat, attached Flat, attached Vessels Normal course and caliber Normal course and caliber Periphery attached, no lesions attached, n o lesions Care Teams Senior Risk Analyst Relationship Specialty Start Date End Date Unknown, Notinfile PCP - General 09/05/21 documented as of this encounter
--- OUTSIDE RECORDS SUMMARY | 2025-03-13 20:04 | XMS_ITS | Clinical Summary ---
Author Organization [facility] Address [address] [place] [address] Care Team Providers Care Patient Admitting Clerk Name Role Phone Unavailable Primary Care Provider Unavailabl e Source Comments [facility],non-owned Affiliates and Associated Physician Practices is amultiple site organization consisting of ambulatory clinics and hospital sitesin [place], [place], [place] and [place]. This disclosure is being madepursuant to the Care Everywhere program and may not contain all information available regarding this patient. 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 Gender Identity Not on file Sexual Orientation Not on file Plan of Treatment Health Maintenance Due Date Last Done Comments HIV SCREENING 2005 HEPATITIS C SCREENING 10/25/2008 DTAP/TDAP/TD VACCINES (1 - Tdap) 2009 HEPATITIS B VACCINE (1 of 3 - 19+ 3-dose series) 2009 PAP SMEAR 10/31/2011 HPV VACCINE (1 - 3-dose SCDM series) 2017 DEPRESSION SCREENING 04/04/2024 COVID-19 VACCINE (1 - 2024-2 6 season) 2024 INFLUENZA VACCINE (#1) 2024 ZOSTER VACCINE (1 of 2) 2040 HIB VACCINE Aged Out No longer eligi ble based on patient's age to complete this topic MENINGOCOCCAL (Group B) VACC INE SHARED DECISION-MAKING Aged Out No longer eligibl e based on patient's age to complete this topic MENINGOCOCCAL GROUPS A/C/Y/W VACCINE Aged Out No longer eligible b ased on patient's age to complete this topic PNEUMOCOCCAL VACCINE Aged Out No long er eligible based on patient's age to complete this topic
--- OUTSIDE RECORDS SUMMARY | 2025-03-13 20:04 | XMS_ITS | Clinical Summary ---
Author Organization [facility] Address [address] [place] [address] Care Team Providers Care Balance Engineer Name Role Phone Unknown, Notinfile Primary Care Provider Unavail able Allergies No known active allergies Medications loratadine (CLARITIN) 10 mg tablet TAKE 1 TABLET BY MOUTH ONCE DAILY DIRECTED FOR 30 DAYS 2 Active polyvinyl alcohol-povidone (REFRESH CLASSIC) 1.4-0.6 % dropperette Administer 2 drops into both eyes every 2 (two) hours as needed for dry eyes 30 each 2 Active erythromycin (ILOTYCIN) ophthalmic ointment Apply to both eyes 4 (four) times a day 3.5 g 2 Active methIMAzole (TAPAZOLE) 10 mg tablet Take 3 tablets (30 mg total) by mouth daily 90 tablet 2 Active propranoloL (INDERAL) 10 mg tablet Take 1 tablet (10 mg total) by mouth 3 (three) times a day as needed (palpitations) 30 tablet 2 Active Active Problems Problem Noted Date Diagnosed Date Hyperthyroidism 09/05/2021 Assessment & Plan (09/07/2021 10:39 AM CDT): Diagnosed in the ED, has not yet established care with endocrine -- no evidence of optic neuropathy today, full motility, no eye redness. Mild intermittent lid retraction on exam -- counseled pt to establish regular care with an in-network eye doctor, especially if considering radioactive iodine which can worsen thyroid eye disease Assessment & Plan (09/06/2021 12:53 AM CDT): Pt persistently tachycardic in ED, TSH < 0.1, T4>7.8, goiter noted on exam. Appears compensated at this time w/o evidence of thyroid storm. - check TSI, T3, urine hcg, CBC, CMP - thyroid ultrasound - start atenolol 50mg daily - endo c/s in am Photokeratitis of both eyes 09/05/2021 Assessment & Plan (09/07/2021 10:37 AM CDT): Seen in the ED on 09/05/21 with presumed photokeratitis - SPEE in both eyes with redness, light sensitivity -- symptoms improved with refresh and erythromycin -- DDx includes early thyroid eye disease given incidental hyperthyroidism diagnosed in the ED as well -- pt is not in-network for insurance. Counseled to seek out another eye doctor to be seen in the next 2-3 months -- in the meantime, recommended using erythromycin ivonne QHS prn and ATs QID PRN during the day -- return precautions discussed Assessment & Plan (09/05/2021 11:47 PM CDT): - seen by optho, f/u 09/07 as outpatient - erythromycin ivonne QID OU - cool compresses QID PRN - preservative free artificial tears Q2h PRN for comfort Medical History Medical History Date Comments Goiter Social History Tobacco Use Types Packs/Day Years Used Date Smoking Tobacco: Never Smokeless Tobacco: Never PHQ-2 Answer Date Recorded PHQ-2 Total Score (If total score is 3 or more points, staff should administer the PHQ-9) 0 09/06/2021 Personal Safety Answer Date Recorded Getting School Help Needed Not on file 04/04 Comments Unknown Sex and Gender Information Value Date Recorded Sex Assigned at Not on file Legal Sex Female 10:13 AM CDT Gender Identity Not on file Sexual Orientation Not on file Last Filed Vital Signs Vital Sign Reading Time Taken Comments Blood Pressure 133/63 09/06/2021 1:05 PM CDT Pulse 89 09/06/2021 1:05 PM CDT Temperature 36.5 C (97.7 F) 09/06/2021 1:05 PM CDT Respiratory Rate 20 09/06/2021 1:05 PM CDT Oxygen Saturation 99% 09/06/2021 1:05 PM CDT Inhaled Oxygen Concentration - - Weight 85.5 kg (188 lb 9.6 oz) 09/06/2021 4:20 A M CDT Height 149.9 cm (4' 11) 09/06/2021 4:20 AM CDT Body Mass Index 38.09 09/06/2021 4:20 AM CDT Plan of Treatment Not on file Insurance [facility] Advance Directives For more information, please contact: [phone] * Full Code (Latest Code Status on File) Date Activated Date Inactivated Comments 09/06/2021 3:42 AM 09/06/2021 7:24 PM Care Teams Balance Engineer Relationship Specialty Start Date End Date Unknown, Notinfile PCP - General 09/05/21
[2025-03-13] MEDS: cefTRIAXone 1 GM in SODIUM CHLORIDE 0.9% IV 50 ML 100 ML IVPB (20:15)
[2025-03-13] MEDS: AZITHROMYCIN IV 500 MG in SODIUM CHLORIDE 0.9% IV 250 ML IVPB (20:58)
[2025-03-13] MEDS: SODIUM CHLORIDE 0.9% IV 800 ML 999 ML IV CONT (21:03)
--- NOTE | 2025-03-13 21:59 | PC.NURSE ---
Pt ambulatory to bathroom with steady gait.
--- NOTE | 2025-03-13 22:00 | PC.NURSE ---
Received report from FRANCISCO Cosme for cont. of care. Pt AOx4 sitting at edge of bed c/o 5/10 chest pain, pt receiving IV abx and IV fluids refer to MAR. Pt placed on continuos pulse oximeter monitoring and cardiac monitoring.
--- NOTE | 2025-03-13 22:02 | WPCEDHO ---
ED Hand Off Checklist All vitals saved: yes IV Site documented:yes All med administrations documented:yes Triage Note Triage Note Patient to ED with c/o URI sx 03/13/25 14:20 since yesterday. agree with triage note, pt states she is having midsternal chest pain since yesterday. Allergies No Known Allergies Allergy (Verified 03/13/25 13:50) Administered/Completed Medications Discontinued Medications Sodium Chloride (Normal Saline Iv) 1,000 mls @ 999 mls/hr IV CONT .Q1H1M STA Stop: 03/13/25 15:57 Last Infusion: 03/13/25 17:14 Dose: Infused Documented By: Admin: 03/13/25 15:27 Dose: 999 mls/hr Documented By: JESSICA Ceftriaxone Sodium 1 gm/ (Sodium Chloride) 50 mls @ 100 mls/hr IVPB ONCE STA Stop: 03/13/25 17:31 Last Infusion: 03/13/25 20:46 Dose: Infused Documented By: Admin: 03/13/25 20:15 Dose: 100 mls/hr Documented By: COLLIN Azithromycin 500 mg/ Sodium (Chloride) 250 mls @ 250 mls/hr IVPB ONCE STA Stop: 03/13/25 18:01 Last Admin: 03/13/25 20:58 Dose: 250 mls/hr Documented By: COLLIN Sodium Chloride (Normal Saline Iv) 1,000 mls @ 999 mls/hr IV CONT .Q1H1M STA Stop: 03/13/25 18:07 Last Infusion: 03/13/25 18:20 Dose: Infused Documented By: Admin: 03/13/25 17:21 Dose: 999 mls/hr Documented By: COLLIN Sodium Chloride (Normal Saline Iv) 1,000 mls @ 999 mls/hr IV CONT .Q1H1M STA Stop: 03/13/25 18:07 Last Infusion: 03/13/25 18:20 Dose: Infused Documented By: Admin: 03/13/25 17:22 Dose: 999 mls/hr Documented By: COLLIN Sodium Chloride (Normal Saline Iv) 800 mls @ 999 mls/hr IV CONT .Q49M STA Stop: 03/13/25 17:55 Last Admin: 03/13/25 21:03 Dose: 999 mls/hr Documented By: COLLIN Ketorolac Tromethamine (Ketorolac 30 Mg/Ml Vial (*Bkc)) 30 mg IV PUSH ONCE STA Stop: 03/13/25 14:58 Last Admin: 03/13/25 15:27 Dose: 30 mg Documented By: JESSICA Oseltamivir Phosphate (Oseltamivir Phosphate 75 Mg Capsule) 75 mg PO ONCE STA Stop: 03/13/25 16:56 Last Admin: 03/13/25 17:15 Dose: 75 mg Documented By: COLLIN Notes 03/13/25 22:00 Nurse Note by Dionne Reeder Received report from FRANCISCO Cosme for cont. of care. Pt AOx4 sitting at edge of bed c/o 5/10 chest pain, pt receiving IV abx and IV fluids refer to MAR. Pt placed on continuos pulse oximeter monitoring and cardiac monitoring. Initialized on 03/13/25 22:00 - END OF NOTE 03/13/25 21:59 Nurse Note by Dionne Reeder Pt ambulatory to bathroom with steady gait. Initialized on 03/13/25 21:59 - END OF NOTE 03/13/25 19:04 (created 03/13/25 20:30) Nurse Note by Carmelina Rico antibiotics have not been started at this time due to second set of blood cultures not being obtained. phlebotomy has been called. Initialized on 03/13/25 20:30 - END OF NOTE Interventions/Assessments IV / Saline Lock, Insert Start: 03/13/25 13:50 Freq: Status: Active Protocol: Document 03/13/25 19:00 LDD (Rec: 03/13/25 21:02 LDD [id number]) IV Assessment Peripheral Access Left Antecubital IV Catheter Access Initiated IV Insertion Date 03/13/25 IV Insertion Time 19:00 Catheter Gauge 18 IV Insertion 1 Attempts Ultrasound Used for No Placement IV Site Assessment WNL IV Care and WNL Maintenance PA: Respiratory Assessment Start: 03/13/25 13:50 Freq: Status: Complete Protocol: Document 03/13/25 14:22 LDD (Rec: 03/13/25 14:22 LDD [id number]) Respiratory Assessment Symptoms Congestion,Cough,Pain,Shortness of Breath at Rest, Shortness of Breath With Exertion Effort Labored,Short of Breath Pattern Tachypnea Depth Shallow Bilateral Throughout Phase Inspiratory & Expiratory Lung Sounds Clear Cough Description Acute,Dry Oxygen Delivery Oxygen Delivery Room Air Pulse Oximetry (90- 98 100) Last Vital Signs Temperature 97.8 F 03/13/25 21:05 Pulse Rate 104 H 03/13/25 21:05 Respiratory Rate 20 03/13/25 21:05 Pulse Oximetry 100 03/13/25 21:05 Blood Pressure 151/78 H 03/13/25 21:05 Blood Pressure Mean 102 03/13/25 21:05 Blood Pressure Position Sitting 03/13/25 13:52 Oxygen Delivery Room Air 03/13/25 14:22 Weight 92.3 kg 03/13/25 14:20 Last Result - Abnormals Only Hct 36.5 % (37.0-47.0) L 03/13/25 15:29 MCV 68.7 fl (80-100) L 03/13/25 15:29 MCH 23.5 pg (26-34) L 03/13/25 15:29 Monocytes % (Manual) 17 % (3-9) H 03/13/25 15:29 Sodium 136 mmol/L (137-145) L 03/13/25 15:29 BUN 6 mg/dL (7-17) L 03/13/25 15:29 Creatinine 0.40 mg/dL (0.7-1.0) L 03/13/25 15:29 Alkaline Phosphatase 132 U/L (38-126) H 03/13/25 15:29 Influenza A (RT-PCR) Positive (Negative) A 03/13/25 14:26 Most Recent Suicide Severity Rating Suicide Severity Rating NO RISK INDICATED 03/13/25 14:20
[2025-03-13] MEDS: HYDROcodone/acetaminophen (*CRX) 5-325 MG TABLET 1 TAB PO (22:41)
--- NOTE | 2025-03-13 23:45 | ADMGEN ---
This patient, Gael Bird, was admitted to Medical Room 341-01. Patient/family oriented to hospital policies and general routines including ID bracelet, bed and alarms, visiting hours, pain management, procedures, bathroom and other care routines, personal items, smoking policy, room service/diet, and visiting hours. Information on how to activate the Rapid Response Team has been discussed. Patient/Family are encouraged to report perceived risks to care and to ask questions if they do not understand what they are told or what they should do. patient on room air, alarm within reach, denies pain at this time.
[2025-03-14 05:00] VITALS: BP 124/64; PULSE 88; RESP 20; TEMP 36.5; O2SAT 98
[2025-03-14] MEDS: BENZOCAINE/MENTHOL (*BKC) 18 EA LOZENGE 1 LOZENGE PO (09:17)
[2025-03-14] MEDS: ACETAMINOPHEN 325 MG TABLET 650 MG PO (09:18)
[2025-03-14] MEDS: OSELTAMIVIR PHOSPHATE 75 MG CAPSULE PO ×2 (09:20→21:08)
--- NOTE | 2025-03-14 10:43 | P.HP_ITS ---
H&P: HPI History of Present Illness Date/Time: 03/14/25 10:43 Chief Complaint: cough, sob Narrative: Gael Bird is a 34-year-old female with a history of Grave's disease who presents to the hospital for nonproductive cough, chills, and shortness of breath for 3 days. She states that this has been going on since Tuesday. She denies any recent sick contacts or anyone else in her household with similar symptoms. Also endorsing sinus congestion with a sore throat, fevers/chills and nausea without emesis. Denies any body aches, chest pain, urinary/bowel changes. She denies any recent travel or hospitalizations. He states exertion/movement makes her shortness of breath worse, rest makes it better. ED workup: 98.7? F, pulse rate 130, respiratory rate 20, 153/105, 100% on room air WBC 5.0, Hgb 12.5, Hct 36.5, Plt 230, Neutrophil 49%, Monocyte 17%, Na 136, K 4.0, BUN 6, Cr 0.4, LFTs wnl Viral Panel: (+) for Influenza A, (-) for COVID/Flu B/RSV Chest XR: Early bilateral pneumonia Review of Systems Review of Systems: All systems reviewed & are unremarkable except as noted in HPI and below PMFSH Past Medical History Medical History (Updated 03/14/25 @ 12:49 by Berto Sepulveda PA-C) Graves disease Social History Social History Smoking status: Never smoker Alcohol intake: never Substance use: never Substance use type: does not use Lack of Transportation: No Lack of Food: Never True Current Housing: I Have Housing Concerned About Future Housing: No Difficulty Paying Gas/Electric Bills: No Difficulty Paying for Meds: No Currently Unemployed: No Education: High School Diploma/GED Difficulty w/ Childcare or Family Care: No Spiritual care concerns: No Meds Home Medications and Allergies Home Medications ?Medication ?Instructions ?Recorded ?Confirmed ?Type No Home Medications 09/17/21 03/13/25 H istory Allergies Allergy/AdvReac Type Severity Reaction Status Date / Time No Known Allergies Allergy Verified 03/13/25 23:20 Vital Signs Vital Signs - 24 hr 03/13/25 13:52 03/13/25 14:19 03/13/25 14:22 Temperature 98.7 F Pulse Rate 130 H 120 H Respiratory Rate 20 24 H Blood Pressure 153/105 H 146/94 H Pulse Oximetry 100 98 Oxygen Delivery Room Air Room Air 03/13/25 14:24 03/13/25 14:30 03/13/25 14:46 Temperature Pulse Rate 123 H 118 H 108 H Respiratory Rate 25 H 33 H 27 H Blood Pressure 146/98 H 149/69 H 140/78 Pulse Oximetry 98 97 100 Oxygen Delivery 03/13/25 15:00 03/13/25 17:36 03/13/25 21:05 Temperature 97.8 F Pulse Rate 110 H 106 H 104 H Respiratory Rate 27 H 22 H 20 Blood Pressure 146/72 H 153/78 H 151/78 H Pulse Oximetry 100 98 100 Oxygen Delivery 03/13/25 22:02 03/14/25 05:00 Temperature 99.1 F 97.7 F Pulse Rate 109 H 88 Respiratory Rate 22 H 20 Blood Pressure 137/83 124/64 Pulse Oximetry 100 98 Oxygen Delivery Exam Narrative: Gen - well appearing female in no acute respiratory distress who is nontoxic- appearing lying semi recumbent in bed HEENT - normocephalic. Atraumatic. Pupils equal round and reactive. Extraocular motions intact. Nares patent. Oropharynx was clear. Moist mucous membranes. No facial asymmetry. Neck - neck was supple. No dominant adenopathy, thyromegaly or masses. 2+ carotid upstrokes without bruits. Chest - lungs are clear to auscultation bilaterally. No wheezes or crackles. CV - heart was regular rate and rhythm. S1-S2. No murmurs gallops or rubs. Abd - abdomen was soft. Nontender. Nondistended. Positive bowel sounds. No organomegaly or masses. Ext - no clubbing, cyanosis or edema. 2+ DP pulses bilaterally. Neuro - patient is alert and oriented x4. Strength is 5/5 in both upper and lower extremities. Cranial nerves 2-12 are intact. Speech is clear. Psych - normal mood and affect. Patient is pleasant and cooperative. Skin - warm and dry. No rashes noted. Results Labs Labs: Short CBC 03/13/25 Range/Units 15:29 WBC 5.0 (4.5-10.0) K/mm3 Hgb 12.5 (12.0-15.0) g/dL Hct 36.5 L (37.0-47.0) % Plt Count 230 (150-375) k/mm3 BMP 03/13/25 15:29 Sodium 136 L Potassium 4.0 Chloride 104 Carbon Dioxide 27 BUN 6 L Creatinine 0.40 L Glucose 108 Calcium 9.1 Liver Function 03/13/25 Range/Units 15:29 Total Bilirubin 0.6 (0.2-1.3) mg/dL AST 36 (14-36) U/L ALT 29 (6-35) U/L Alkaline Phosphatase 132 H (38-126) U/L Albumin 4.1 (3.5-5.1) g/dL Quality VTE Prophylaxis VTE prophylaxis: mechanical ordered Assessment and Plan Assessment and plan (1) Influenza and pneumonia: Code(s): J11.00 - Influenza due to unidentified influenza virus with unspecified type of pneumonia Status: Acute Assessment and Plan: * CXR: Early bilateral pneumonia * Complicating Factors: Concurrent influenza A * started on CAP tx: azithromycin & ceftriaxone * Viral PCR: (+) for FluA, (-) for COVID/RSV * no supplemental O2 requirement * supportive treatment * trend labs * Monitor vital signs, I&Os, neuro status and patient is a fall risk * Follow WBC, serum electrolytes, temperature curves and cultures * Send blood/sputum cultures - pending * Gentle IV fluid resuscitation (2) Graves disease: Code(s): E05.00 - Thyrotoxicosis with diffuse goiter without thyrotoxic crisis or storm Status: Acute Assessment and Plan: * Not on any medications
[2025-03-14 11:13] LABS: Hematocrit 31.6 % (37.0-47.0); Hemoglobin 10.4 g/dL (12.0-15.0); Immature Granulocyte Percent A 0.5 % (0-0.5); Lymphocytes Absolute Auto 1.71 K/mm3 (0.9-3.2); Mean Corpuscular HGB Conc 32.9 g/dl (32-36); Mean Corpuscular Hemoglobin 23.2 pg (26-34); Mean Corpuscular Volume 70.4 fl (80-100); Nucleated Red Blood Cells Absolute Auto 0.000 K/mm3 (0.0-0.012); Nucleated Red Blood Cells Perc 0.0 % (0.0-0.2); Platelet Count Result 204 k/mm3 (150-375); Red Blood Count 4.49 M/mm3 (4.2-5.4); White Blood Count 4.4 K/mm3 (4.5-10.0)
[2025-03-14 11:24] LABS: Alanine Aminotransferase 33 U/L (6-35); Albumin Level 3.3 g/dL (3.5-5.1); Alkaline Phosphatase 90 U/L (38-126); Anion Gap 6 mmol/L (4-12); Aspartate Amino Transferase 35 U/L (14-36); Bilirubin,Total 0.5 mg/dL (0.2-1.3); Blood Urea Nitrogen 4 mg/dL (7-17); Calcium 8.8 mg/dL (8.4-10.2); Carbon Dioxide 21 mmol/L (22-30); Chloride 110 mmol/L (98-107); Estimated Glomerular Filt Rate > 60; Glucose 121 mg/dL (65-110); Potassium 3.7 mmol/L (3.4-5.0); Sodium 137 mmol/L (137-145); Total Protein 6.7 g/dL (6.3-8.2)
[2025-03-14 11:47] LABS: Hypochromasia 2+; Microcytosis 2+ (NORMAL)
[2025-03-14 11:48] LABS: Anisocytosis Occasional; Burr Cells 1+; Target Cells 1+
[2025-03-14 11:49] LABS: Schistocytes None Seen
[2025-03-14 14:00] VITALS: BP 125/82; PULSE 96; RESP 20; TEMP 36.5; O2SAT 100
[2025-03-14 20:08] VITALS: PULSE 101; RESP 18
[2025-03-14] MEDS: IPRATROPIUM 0.5 MG/ALBUTEROL SULFATE 2.5 MG (BASE) AMPUL.NEB 3 ML INHALATION (20:08)
[2025-03-14 20:15] VITALS: PULSE 101; O2SAT 99
[2025-03-14 20:16] VITALS: PULSE 99; RESP 18
[2025-03-14] MEDS: AZITHROMYCIN 500 MG TABLET PO (21:08)
[2025-03-14 21:10] VITALS: BP 153/76; PULSE 115; RESP 18; TEMP 36.7; O2SAT 99
[2025-03-15 04:30] VITALS: BP 132/78; PULSE 98; RESP 20; TEMP 36.7; O2SAT 98
[2025-03-15 05:40] LABS: Hematocrit 31.4 % (37.0-47.0); Hemoglobin 10.5 g/dL (12.0-15.0); Immature Granulocyte Percent A 0.2 % (0-0.5); Lymphocytes Absolute Auto 2.66 K/mm3 (0.9-3.2); Mean Corpuscular HGB Conc 33.4 g/dl (32-36); Mean Corpuscular Hemoglobin 23.2 pg (26-34); Mean Corpuscular Volume 69.5 fl (80-100); Nucleated Red Blood Cells Absolute Auto 0.000 K/mm3 (0.0-0.012); Nucleated Red Blood Cells Perc 0.0 % (0.0-0.2); Platelet Count Result 217 k/mm3 (150-375); Red Blood Count 4.52 M/mm3 (4.2-5.4); White Blood Count 4.6 K/mm3 (4.5-10.0)
[2025-03-15 06:21] LABS: Hypochromasia 1+; Microcytosis 2+ (NORMAL); Schistocytes None Seen; Target Cells 1+
[2025-03-15 06:23] LABS: Alanine Aminotransferase 31 U/L (6-35); Albumin Level 3.4 g/dL (3.5-5.1); Alkaline Phosphatase 103 U/L (38-126); Anion Gap 4 mmol/L (4-12); Aspartate Amino Transferase 30 U/L (14-36); Bilirubin,Total 0.4 mg/dL (0.2-1.3); Blood Urea Nitrogen 5 mg/dL (7-17); Calcium 8.8 mg/dL (8.4-10.2); Carbon Dioxide 25 mmol/L (22-30); Chloride 108 mmol/L (98-107); Estimated Glomerular Filt Rate > 60; Glucose 105 mg/dL (65-110); Potassium 3.5 mmol/L (3.4-5.0); Sodium 137 mmol/L (137-145); Total Protein 6.7 g/dL (6.3-8.2)
[2025-03-15 08:30] VITALS: O2SAT 100
[2025-03-15] MEDS: OSELTAMIVIR PHOSPHATE 75 MG CAPSULE PO (08:30)
--- NOTE | 2025-03-15 12:26 | PM.DS ---
DS: Admitting Diagnosis Discharge Date 03/15/2025 Admitting Diagnosis Influenza and pneumonia DS: Discharge Diagnosis Discharge Diagnosis (1) Influenza and pneumonia: Code(s): J11.00 - Influenza due to unidentified influenza virus with unspecified type of pneumonia Status: Acute (2) Graves disease: Code(s): E05.00 - Thyrotoxicosis with diffuse goiter without thyrotoxic crisis or storm Status: Acute DS: Summary Hospital Course Reason for hospitalization: cough, sob Hospital Course: 34-year-old female with a history of Graves disease, was admitted with a three-day history of nonproductive cough, chills, shortness of breath, sinus congestion, sore throat, and intermittent fevers. She denied chest pain, body aches, or gastrointestinal or urinary symptoms. On presentation, she was tachycardic and hypertensive but maintained normal oxygen saturation on room air. Laboratory evaluation revealed a normal white blood cell count, mild anemia, and unremarkable metabolic and liver function panels except for a mildly elevated alkaline phosphatase. Viral PCR was positive for influenza A, and chest radiography demonstrated early bilateral pneumonia. She was started on empiric community-acquired pneumonia therapy with azithromycin and ceftriaxone, along with supportive care and gentle IV fluids. She remained hemodynamically stable without supplemental oxygen requirements. Blood and sputum cultures were obtained and are pending. Her Graves disease was noted to be untreated, but she did not exhibit signs of thyrotoxic crisis. Throughout her hospital course, she remained alert, oriented, and in no acute respiratory distress, with stable vital signs and no evidence of clinical deterioration. VTE prophylaxis was initiated, and her clinical status was closely monitored with trending labs and vital signs. On 03/15, she remained hemodynamically stable and would be safe to discharge at this point. She does have blood cultures pending, but discussed with the patient the risks/benefits of discharge prior to preliminary results on blood cultures and the patient would prefer to be discharged at this point. Discussed with the patient that if these come back positive that she will need to come back to the hospital for IV antibiotics. She was agreeable to this plan. Plan to discharge patient on Azithromycin and Augmentin for pneumonia, Oseltamivir for influenza, and guaifenesin for congestion. Advised to wear mask in public and to follow up with PCP. PT is agreeable. Status at Discharge Functional status at discharge: independent ambulation Overall status at discharge: patient is back to baseline Time Spent with Patient Time attestation: Total time spent providing and/or coordinating discharge services: 27 Exam Narrative: Gen - well appearing female in no acute respiratory distress who is nontoxic-appearing lying semi recumbent in bed HEENT - normocephalic. Atraumatic. Pupils equal round and reactive. Extraocular motions intact. Nares patent. Oropharynx was clear. Moist mucous membranes. No facial asymmetry. Neck - neck was supple. No dominant adenopathy, thyromegaly or masses. 2+ carotid upstrokes without bruits. Chest - lungs are clear to auscultation bilaterally. No wheezes or crackles. CV - heart was regular rate and rhythm. S1-S2. No murmurs gallops or rubs. Abd - abdomen was soft. Nontender. Nondistended. Positive bowel sounds. No organomegaly or masses. Ext - no clubbing, cyanosis or edema. 2+ DP pulses bilaterally. Neuro - patient is alert and oriented x4. Strength is 5/5 in both upper and lower extremities. Cranial nerves 2-12 are intact. Speech is clear. Psych - normal mood and affect. Patient is pleasant and cooperative. Skin - warm and dry. No rashes noted. DS: Data Data Completed and Pending Labs on day of discharge: Labs from last 24 hours 03/15/25 05:15 WBC 4.6 RBC 4.52 Hgb 10.5 L Hct 31.4 L MCV 69.5 L MCH 23.2 L MCHC 33.4 RDW 14.3 Plt Count 217 MPV 10.0 Immature Gran % (Auto) 0.2 Neut % (Auto) 26.2 L Lymph % (Auto) 58.1 H Vance % (Auto) 14.4 H Eos % (Auto) 0.9 Baso % (Auto) 0.2 Lymph # (Auto) 2.66 Vance # (Auto) 0.7 H Eos # (Auto) 0.0 Baso # (Auto) 0.0 Abs Immat Gran (auto) 0.01 Absolute Neuts (auto) 1.2 L Absolute Nucleated RBC 0.000 Band Neutrophils % Not Reportable Nucleated RBC % 0.0 Platelet Estimate Adequate Hypochromasia 1+ Microcytosis 2+ Target Cells 1+ Schistocytes None seen Sodium 137 Potassium 3.5 Chloride 108 H Carbon Dioxide 25 Anion Gap 4 BUN 5 L Creatinine 0.34 L Estim Creat Clear Calc Not Reportable Estimated GFR > 60 Glucose 105 Calcium 8.8 Total Bilirubin 0.4 AST 30 ALT 31 Alkaline Phosphatase 103 Total Protein 6.7 Albumin 3.4 L Discharge Plan Discharge Attending physician on discharge: Magaly Silva Consulting providers: Berto Sepulveda Discharging Clinician: Berto Sepulveda Anticipated Discharge Date/Time: 03/15/25 12:17 Patient Disposition: Home Activity: as tolerated Diet: regular Discharge Instructions: Discharge disposition: Home Take medications as prescribed. You will be prescribed Azithromycin (to be taken once daily) for 3 more days and Augmentin (to be taken twice daily) to be taken for 4 more days. You will also be given Oseltamivir to be taken twice daily for another 5 days. You will also be prescribed Tessalon Perles for cough to take as needed and Guaifenesin to be taken for congestion Monitor blood pressures Take caution while standing, rising, or moving Change positions slowly taking a break between each position change If you standing feel dizzy sit back down and take a break Encouraged to continue with yearly vaccinations Return to the emergency department if you develop sudden shortness of breath, chest pain, nausea, vomiting, upset stomach or intractable diarrhea Return to the emergency department if you develop fever greater than 101.5 Follow-up with the primary care physician within 1-2 weeks Thank you for choosing [facility] for your healthcare needs Patient Instructions: Antibiotic Form, Influenza (DC), Droplet Precautions (GEN) Patient Language: Slovak Stand Alone Forms: General Discharge Information Follow-up/Referrals: AkuaTori M.D. [Primary Care Provider] Discharge Medications: New amoxicillin-pot clavulanate 875-125 mg tablet 1 tablet PO Q12H Qty: 6 0RF oseltamivir 75 mg capsule 75 mg PO Q12H 5 Days Qty: 10 0RF azithromycin 500 mg tablet 500 mg PO DAILY 3 Days Qty: 3 0RF guaifenesin 200 mg tablet 200 mg PO Q4H PRN (Reason: congestion) 3 Days Qty: 12 0RF benzonatate 100 mg capsule 100 mg PO TID PRN (Reason: cough) 3 Days Qty: 9 0RF No Action No Home Medications Date of admission: 03/13/25 17:02 Primary Care Provider: AkuaTori Admitting Provider: Charles Prather Attending physician on admission: Charles Prather Condition: Stable Quality VTE Prophylaxis VTE prophylaxis: mechanical ordered
== END 2025-03-15 14:15 | disposition home or self-care (01) ==
LOC: ANHED 15:07 → ANH3MEDSUR 18:53 → ANH3MED 03-14 07:09 → ANH3MEDSUR 03-18 09:02
PROVIDERS: Emergency Medicine; Physician Assistant; Admitting Provider Family Medicine; Emergency Provider Emergency Medicine; PCP Internal Medicine Infectious Disease; Visit Provider Internal Medicine
DX: J11.00 Influenza due to unidentified influenza virus with unspecified type of pneumonia (principal); E05.00 Thyrotoxicosis with diffuse goiter without thyrotoxic crisis or storm; Z20.822 Contact with and (suspected) exposure to COVID-19
CPT/HCPCS: 36415; 71046; 80053; 85025; 87040; 87070; 87205; 87637; 93005; 94640; 96361; 96365; 96366; 96367; 96375; 99285; A9270; G0378; G0379; J0456; J0696; J1885; J7030; J7050